=== PATIENT | female | born 1985 | race Caucasian/White ===

== ENCOUNTER 2019-01-08 23:15 | Inpatient (IN) | payer OTHER ==
[~2019-01-08] VITALS: Ht 165.1 cm; Wt 88.6 kg
[2019-01-08] MEDS ORDERED: PENICILLIN G POTASSIUM IV 5 MU in D5W MINI-BAG PLUS 100 ML IV STA (23:54)
[2019-01-08] MEDS ORDERED: LR 1,000 ML IV SCH (23:54)
[2019-01-09] VITALS (20 sets, daily range): BP systolic 117–159; BP diastolic 56–85
--- NOTE | 2019-01-09 00:06 | HPEPDOC ---
Obstetrical History & Physical General Date of Admission Jan 08, 2019 at 23:52 History of Present Illness 32 y/o at 39+1 s/p membranes stripped earlier today. LOF at 2200 that has continued, clear. No ctx's. No VB. Pos FM. Chief Complaint: LOF, term Information Provided By: Patient Dating Final EDC by: LMP, 1st trimester (US) Past Medical History Past Obstetrical History : Past Obstetrical History: Multigravida Type of Delivery: Spontaneous Vaginal Del. 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 Past Medical History Medical History denies Surgical History: [place] teeth, Other (right shoulder x1) Family History Significant Family History: No pertinent family hx Social History Marital Status: Family situation: Spouse/partner home Psychosocial History: No pertinent psych hx * Smoker: non-smoker Alcohol: Denies Drugs: denies Abuse Violence Screening Have you been hit/kicked/slapp: No Have you been sexually assault: No Imunizations Tdap status: current Allergies Coded Allergies: Nitrofurantoin (Verified Allergy, Intermediate, rash, 01/09/19) Sulfa (Sulfonamide Antibiotics) (Verified Allergy, Intermediate, rash, 01/09/19) Physical Examination Physical Examination GENERAL: Alert and oriented times three. ABDOMEN: Gravid and non-tender to touch. FETUS: Is vertex (VTX) by sterile vaginal examination (SVE), /-2, vtx well applied, obvious PROM fluid noted with check EXTREMITIES: No edema. Laboratory Data [facility] Laboratory Tests 2 01/08/19 23:36: Serology Scanned Report Hepatitis B Testing Urine Culture: No Growth Pertinent Laboratoy Data Blood Type: A+ RBC Antibody Screen: Negative HIV: Negative Hepatitis B: Negative Hepatitis C: Unknown Rapid Plasma Reagin: Nonreactive Rubella: Immune Varicella: Immune Chlamydia/Gonorrhea: Negative Group B Streptococcus: Positive Quad Screen Test: Unknown Cystic Fibrosis: Negative Glucose Tolerance Test: 117 Anatomy Ultrasound Placenta Location: Anterior Normal Anatomy: Yes Placenta Previa: No Assessment Variability: Moderate Accelerations: Positive Decelerations: None Tocometer Contractions: No Assessment/Plan Assessment PROM, 2-3 hrs ago Plan Admit and orient. 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 Diet: clears Group B Streptococcus (GBS) pos, PCN per SOP Labs and intravenous (IV) per unit protocol. Counseled on Pitocin and induction of labor (IOL). Will start this a few hours after first PCN dose. Lactated Ringers (LR): 125 mL/hr. Anticipate normal spontaneous delivery () C-S as appropriate. Sessions MD SESSIONS,VINI De La Fuente MD Jan 09, 2019 00:06
[2019-01-09] MEDS: LR 1,000 ML IV SCH ×2 (01:08→09:02)
[2019-01-09 01:47] LABS: HEMATOCRIT 32.5 % (36.0-47.0); HEMOGLOBIN 10.3 g/dl (12.0-15.5); MEAN CORPUSCULAR HEMOGLOBIN 27.5 pg (27.0-33.0); MEAN CORPUSCULAR HGB CONC 31.7 g/dl (32.0-36.5); MEAN CORPUSCULAR VOLUME 86.9 fl (80.0-96.0); PLATELET COUNT, AUTOMATED 137 10^3/uL (150-450); RED BLOOD COUNT 3.74 10^6/uL (4.00-5.40); WHITE BLOOD COUNT 6.6 10^3/uL (4.0-10.0)
[2019-01-09] MEDS: PENICILLIN G POTASSIUM IV 2.5 MU in APPROPRIATE DILUENT 1 EA IV SCH ×2 (05:07→09:02)
--- NOTE | 2019-01-09 06:17 | IPNPDOC ---
Text Note Date of Service The patient was seen on 01/09/19. NOTE FHT Cat 1, ctx's increasing in freq and pain Cx / Doing well, SBAR to MAJ Perez at 0830, recheck then. Sessions VS,El, I+O VS, El I+O Laboratory Tests 01/09/19 01:39 Red Blood Count 3.74 L, Mean Corpuscular Volume 86.9, Mean Corpuscular Hemoglobin 27.5, Mean Corpuscular Hemoglobin Concent 31.7 L, Red Cell Dis tribution Width 14.5 SESSIONS,VINI De La Fuente MD Jan 09, 2019 06:17
--- NOTE | 2019-01-09 08:58 | NUR ---
[facility] Intrapartum Progress Note: S: Called to bs to assess as requested by Irene. She reports inability to continue to tolerate labor and desires assessment and NEAL. Spouse present at bs for support. O: VSS- occasional mild range BP but during ctx; no elevated BP in between ctx; afebrile A&Ox3; coping appropriately ABD: gravid; relaxed uterine resting tone in between ctx EXT: NEG homans FHR: 140 mod variability, + accelerations, early decelerations TOCO: ctx q3-5 of mild-moderate intensity via palpation SCE: 5/90/-1; soft; vertex presentation; clear amniotic fluid A/P: This is a 32 y/o at 39+2 weeks s/p PROM late evening. Likely still latent phase labor. CAT I FHR. May have NEAL as desired. Safe to proceed. Will consider augmentation should there be no change at next examination.
[2019-01-09] MEDS ORDERED: FENTANYL 2MCG/ML ROPIVACAINE 0.2% IN 0.9% NACL 100ML IVBAG As Ordered ONE (09:07)
[2019-01-09] MEDS ORDERED: ONDANSETRON 4MG/2ML VIAL (J2405) IV PRN (10:00)
[2019-01-09] MEDS ORDERED: EPIDURAL COMMENT XX SCH (10:00)
[2019-01-09] MEDS ORDERED: FENTANYL/ROPIVACAINE/NACL BAG 100 ML EPIDURAL SCH (10:00)
[2019-01-09] MEDS ORDERED: REFRIGERATOR IV KEYS XX PRN (10:00)
[2019-01-09] MEDS ORDERED: diphenhydrAMINE INJ 50MG/ML VIAL (J1200) IV PRN (10:00)
[2019-01-09] MEDS ORDERED: ePHEDrine SULFATE 25 MG/5 ML(5MG/ML) SYRINGE IV PRN (10:00)
[2019-01-09] MEDS ORDERED: EPIDURAL/PCA KEYS XX PRN (10:00)
[2019-01-09] MEDS ORDERED: NALOXONE INJ 0.4 MG/1 ML VIAL (J2310) IV PRN (10:00)
[2019-01-09] MEDS ORDERED: OXYTOCIN 30 UNITS IN 0.9% NaCl 500ML IV BAG (J2590) As Ordered ONE (10:23)
--- NOTE | 2019-01-09 10:42 | NUR ---
[facility] L&D Delivery Summary: Called to bedside by RN for strong urge to push following NEAL placement. SVE: C/C/+2. With several strong maternal pushing efforts vtx delivered direct OT with compound hand. With gentle downward guidance left anterior shoulder delivered followed by right shoulder and corpus. placed on maternal abdomen for immediate jogv-qi-[id number] contact and assessments. 3V cord double clamped and cut by CNM after cessation of pulsation. Active management of the third stage w/ gentle cord traction which yielded spontaneous delivery of an intact placenta w/ central cord insertion. Oxytocin bolus administered following placental expulsion and FF @U-3 w/ scant rubra lochia. Vagina, cervix and perineum inspected for lacerations; hemostatic abrasions present near introitus; no indication for repair. Sponge counts correct x2 and mom and babe in stable condition bonding when I left the room. DEL: 1016, male infant PLAC: 1024 ANESTHESIA: NEAL : 8/9 EBL: 250ml WEIGHT: deferred for initial duhb-ea-reli LAC: No lacerations PROVIDER: Shaylee Perez CNM
[2019-01-09] MEDS ORDERED: IBUPROFEN 800 MG TAB PO PRN (10:45)
[2019-01-09] MEDS ORDERED: MOM 30ML SUSPENSION UDC PO PRN (10:45)
[2019-01-09] MEDS ORDERED: ANUSOL HC CREAM 30GM TOP PRN (10:45)
[2019-01-09] MEDS ORDERED: METHYLERGONOVINE MALEATE 0.2 MG TAB PO PRN (10:45)
[2019-01-09] MEDS ORDERED: DOCUSATE SODIUM 100 MG CAP PO PRN (10:45)
[2019-01-09] MEDS ORDERED: MEASLES,MUMPS,RUBELLA VACCINE INJ (MMR-II) (90707) SC SCH (10:45)
[2019-01-09] MEDS ORDERED: ACETAMINOPHEN 500 MG TAB PO PRN (10:45)
[2019-01-09] MEDS ORDERED: DIBUCAINE 1% OINTMENT 30GM TOP PRN (10:45)
[2019-01-09] MEDS ORDERED: OXYTOCIN DRIP 30 UNITS in APPROPRIATE DILUENT 1 EA IV SCH ×3 (11:10)
--- NOTE | 2019-01-10 05:54 | NUR ---
[facility] Progress Note Date of Service The patient was seen on 01/10/19. NOTE PPD1 Irene reports feeling well, pain controlled with no medication (declines all PRN meds). Baby bonding and feeding well. No heavy VB. Lochia slowing. Ambulatory. Tolerating PO without issues. Voiding spont. No CP/LP/SOB. Strong desire for dc to home today. VSS/AF NAD A&O LE no C/C/E Ut at U-2, firm Lochia scant rubra Breasts-nipples intact; soft Intact Perineum a/p: Irene is a G3 now P3003 s/p normal vaginal delivery on 09 JAN 2019. Nml course. Reviewed dc precautions to include return precautions/warning signs. Pt declined d/c meds and none were given. Will dc to home today and/or transition to boarder status pending dc of nbn. She has been advised to make f/u appt w/ [facility] for 6 week assessment. All questions/concerns answered.
[2019-01-10 06:00] VITALS: BP 122/68
[2019-01-10] MEDS ORDERED: MAPA500T2 PO (08:06)
[2019-01-10] MEDS ORDERED: PRENTAB9 PO (08:09)
[2019-01-10] MEDS ORDERED: IBUP-1114 PO (08:09)
[2019-01-10] MEDS ORDERED: NUPE1OIN2 TOP (08:09)
[2019-01-10] MEDS ORDERED: PRENATAL VITAMINS CHEWABLE TABLET PO SCH (09:00)
== END 2019-01-10 15:32 | disposition home or self-care (01) | DRG 807 ==
LOC: M LDO 23:15 → M LDI 23:52 → M OBS 01-09 13:10
PROVIDERS: ADMIT Obstetrics & Gynecology; ATTEND Advanced Practice Midwife
PROC: 10E0XZZ Delivery of Products of Conception, External Approach (ICD-10-PCS; principal; 2019-01-09)
DX: O42.02 Full-term premature rupture of membranes, onset of labor within 24 hours of rupture (principal); Z37.0 Single live birth; Z3A.39 39 weeks gestation of pregnancy; O99.824 Streptococcus B carrier state complicating childbirth; O32.6XX0 Maternal care for compound presentation, not applicable or unspecified

== ENCOUNTER 2019-01-22 20:46 | Day surgery (SDC) | payer OTHER ==
[~2019-01-22] VITALS: Ht 165.1 cm; Wt 73.2 kg
[~2019-01-22 20:46] MED LIST: IBUP-1114 PO; MAPA500T2 PO; NUPE1OIN2 TOP; PRENTAB9 PO
[2019-01-22 21:50] LABS: BASO # 0.1 10^3/uL (0.0-0.2); BASO % 0.9 % (0.0-1.0); EOS # 0.1 10^3/uL (0.0-0.50); EOS % 2.1 % (0.0-3.0); HEMATOCRIT 41.6 % (36.0-47.0); HEMOGLOBIN 13.2 g/dl (12.0-15.5); LYMPH # 2.3 10^3/uL (1.5-4.5); MEAN CORPUSCULAR HGB CONC 31.7 g/dl (32.0-36.5); MEAN CORPUSCULAR VOLUME 85.2 fl (80.0-96.0); MONO # 0.3 10^3/uL (0.0-0.8); MONO % 6.2 % (0.0-5.0); NEUTROPHILS # 2.6 10^3/uL (1.8-7.7); NEUTROPHILS % 48.4 % (36.0-66.0); PLATELET COUNT, AUTOMATED 184 10^3/uL (150-450); RED BLOOD COUNT 4.88 10^6/uL (4.00-5.40); WHITE BLOOD COUNT 5.4 10^3/uL (4.0-10.0)
[2019-01-22 22:06] LABS: INR 1.02; PROTHROMBIN TIME 13.5 SECONDS (12.1-14.4)
[2019-01-22 22:07] LABS: PARTIAL THROMBOPLASTIN TIME 25.9 SECONDS (25.4-37.6)
[2019-01-22 22:10] LABS: BLOOD UREA NITROGEN 24 MG/DL (7-18); CALCIUM LEVEL 8.6 MG/DL (8.5-10.1); CARBON DIOXIDE LEVEL 26 MEQ/L (21-32); CHLORIDE LEVEL 109 MEQ/L (98-107); GLOMERULAR FILTRATION RATE > 60.0 (>60); GLUCOSE, FASTING 87 MG/DL (70-100); POTASSIUM SERUM 4.1 MEQ/L (3.5-5.1); SODIUM LEVEL 141 MEQ/L (136-145)
--- NOTE | 2019-01-22 22:54 | REPVR ---
EXAM: US Pelvis Complete, Transabdominal EXAM DATE/TIME: 01/22/2019 10:41 PM CLINICAL HISTORY: 33 years old, female; Signs and symptoms; Menstruation abnormalities; Other: Past bleeding with large clots; Additional info: Vag bleeding post , eval for retained prods TECHNIQUE: Imaging protocol: Real-time transabdominal pelvic ultrasound with image documentation. Complete exam. COMPARISON: No relevant prior studies available. FINDINGS: Uterus/cervix: Uterus measures 10.6 x 7.2 x 9.7 cm. Endometrial echocomplex measures 4.5 cm with complex echotexture. Findings consistent with recent status and retained hemorrhage. Retained products of conception not absolutely excluded. Correlation with sonohysterogram may be of additional benefit. Right adnexa: Right ovary measures 4.4 x 1.6 x 1.2 cm. Left adnexa: Left ovary measures 2.1 x 1.6 cm. Free fluid: None. Bladder: Normal. IMPRESSION: Endometrial echocomplex measures 4.5 cm with complex echotexture. Findings consistent with recent status and retained hemorrhage. Retained products of conception not absolutely excluded. Correlation with sonohysterogram may be of additional benefit. Followup scan also suggested. Electronically signed by: Ghanshyam Cabrera On 01/22/2019 22:54:10 PM
[2019-01-23] MEDS ORDERED: NS 1,000 ML IV ONE (01:00)
[2019-01-23] MEDS ORDERED: AMPICILLIN SOD/SULBACTAM SOD 1.5 GM in D5W MINI-BAG PLUS 50 ML IV ONE (01:00)
[2019-01-23] MEDS ORDERED: ACETAMINOPHEN 650 MG SUPP PR ONE (01:15)
[2019-01-23] MEDS ORDERED: UNASYN 1.5 GM VIAL As Ordered ONE (01:41)
[2019-01-23] MEDS ORDERED: LIDOCAINE 2% INJ 100 MG/5 ML SDV (FOR ANES.) As Ordered ONE (01:55)
[2019-01-23] MEDS ORDERED: PROPOFOL 200 MG/20 ML VIAL As Ordered ONE (01:55)
[2019-01-23] MEDS ORDERED: fentaNYL 100 MCG/2 ML INJECTION (J3010) As Ordered ONE (01:55)
[2019-01-23] MEDS ORDERED: MIDAZOLAM INJ 2 MG/2 ML VIAL (J2250) As Ordered ONE (01:55)
[2019-01-23] MEDS ORDERED: NS 1,000 ML IV SCH (02:00)
[2019-01-23] MEDS ORDERED: ACETAMINOPHEN 650 MG SUPP As Ordered ONE (02:20)
[2019-01-23] MEDS ORDERED: OXYTOCIN INJ 10 UNITS/ML VIAL (J2590) As Ordered ONE (02:30)
[2019-01-23] MEDS ORDERED: miSOPROStol 200 MCG TAB (S0191) As Ordered ONE (02:31)
[2019-01-23] MEDS ORDERED: ONDANSETRON 4MG/2ML VIAL (J2405) IV PRN (02:45)
[2019-01-23] MEDS ORDERED: MEPERIDINE INJ 25 MG/ML VIAL (J2175) IV PRN (02:45)
[2019-01-23] MEDS ORDERED: fentaNYL 100 MCG/2 ML INJECTION (J3010) IV PRN (02:45)
[2019-01-23] MEDS ORDERED: OXYTOCIN INJ 20 UNITS in LR 1,000 ML IV SCH (02:45)
[2019-01-23] MEDS ORDERED: KETOROLAC 30 MG/ML VIAL (J1885) IV PRN ×2 (02:45→04:00)
[2019-01-23 03:40] VITALS: BP 125/68
[2019-01-23 04:10] VITALS: BP 126/69
[2019-01-23 04:40] VITALS: BP 131/66
[2019-01-23 05:40] VITALS: BP 131/74
--- NOTE | 2019-01-23 09:00 | HPE ---
DATE OF ADMISSION: 01/23/2019 This lady is a 33-year-old 3 now para 3, delivered spontaneous vaginal delivery on 01/09/2019 uneventfully, a live male infant. Apparently at that time the placenta was spontaneously delivered. She had no issues with perineal tears or lacerations. She has been bleeding off and on for the last week and passing clots. Despite the fact she is breast-feeding, she has persistent and intermittent clots and progressive cramping and pain. Her past history is that she had right shoulder surgery. She has had urethral dilatation, wisdom teeth. She has no medical issues. ALLERGIES: She has allergies to SULFA, MACROBID, which she has swelling and her throat closes, she is not quite sure which one. Her family history is noncontributory. She came in this evening, had an ultrasound which showed that she has a 4.5 cm consolidated complex endometrial echo with vascularity, highly suggestive of retained products of conception. On physical examination, she is in no acute distress. Temperature is 96.0, pulse is 50, blood pressure is 140/65, respirations are 16, oxygen saturation 97%. On pelvic examination with speculum, the os is quite open. There is a moderate amount of clots and bleeding, possibility of retained products of conception is high. Uterus is semi-involuted, nontender and uterus is 3 below. Her CBC is within normal limits and her electrolytes, BUN and creatinine are within normal limits. After discussing risks and benefits of suction curettage including hemorrhage, infection, perforation, reoperation, possibility of blood transfusion - remote and possibility of repeat suction curettage, the patient expressed understanding, consented and we await the anesthesiology and OR department. The rest of the examination is unremarkable. She is normocephalic, atraumatic. Neck: Full range of motion. Pupils equal, reactive to light. Distal pulses symmetric. No evidence of deep vein thrombosis (DVT), pulmonary embolism (PE) or superficial phlebitis. Chest is clear bilateral bases. No wheezes or rhonchi. Abdomen: Soft. Four quadrant bowel sounds are noted. Pelvic examination is noted. She has no rashes, lesions or pruritus. No arthralgia, myalgia. No joint pain. No cough, wheeze, shortness breath or dyspnea on exertion. Presently she is breast-feeding, going well. Breast examination: No evidence of mastitis, and the patient is well hydrated. As mentioned, plan of action is a suction curettage. Coverage with antibiotics will be Unasyn as the patient is sensitive to sulfa and Macrobid.
--- NOTE | 2019-02-01 19:19 | RO ---
DATE OF PROCEDURE: 01/23/2019 PREOPERATIVE DIAGNOSIS: Retained products of conception, uterine atony. POSTOPERATIVE DIAGNOSIS: Retained products of conception, uterine atony. OPERATION PROPOSED: Suction curettage. OPERATION PERFORMED: Suction curettage. SURGEON: Dr. Manohar Arredondo [employer]OR[employer] FINAL INSPECTOR: ANESTHESIA: General. ESTIMATED BLOOD LOSS: 300 mL. DESCRIPTION OF PROCEDURE: After adequate time-out, patient under adequate anesthesia, prepped and draped in the lithotomy position, sequentials on board, appropriate antibiotics preoperatively, acetaminophen suppository 1300 mg per rectum, Irby catheter was drained for 250 mL of concentrated urine. Weighted speculum in t he vagina. Ring forceps on the anterior lip of the cervix. Uterus was enlarged about 16 cm with already the cervix dilated to about a Hegar 12, curved suction curette applied. moderate clot, moderate amount plus decidua and debris was noted. Suction curette with a curette 12. Uterus contracted well down on Pitocin, was slow to contract and therefore Cytotec was given per rectum in order to continue and maintain uterine contractility. The uterus was placed in anatomical position, well contracted. Instrument and pad count correct, and the patient was sent to recovery in good condition. The patient is Rh positive, does not require RhoGAM.
== END 2019-01-23 06:15 | disposition home or self-care (01) ==
LOC: M ED 20:46 → M SDC 01-23 00:20 → M PED 01-23 03:35 → M SDC 01-23 06:15
PROVIDERS: ATTEND Obstetrics & Gynecology
DX: O73.1 Retained portions of placenta and membranes, without hemorrhage (principal); Z88.1 Allergy status to other antibiotic agents; Z88.2 Allergy status to sulfonamides
CPT/HCPCS: 36415; 59160; 76856; 80048; 85025; 85610; 85730; 86850; 86900; 86901; 88305; 99284; J2250; J2590; J3010